=== PATIENT | male | born 1960 | race Caucasian/White ===

== ENCOUNTER 2017-02-28 18:32 | Emergency (ER) | payer BC, OTHER ==
[~2017-02-28] VITALS: Ht 172.7 cm; Wt 81.0 kg
[~2017-02-28 18:32] MED LIST: CEPH500C3 PO; HYDR-3533 PO; TAB-TAB PO
[2017-02-28 18:35] VITALS: BP 136/97; PULSE 87; RESP 16; TEMP 99.9; O2SAT 99
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
[2017-02-28] MEDS ORDERED: SODIUM CHLORIDE 0.9% FLUSH 10 ML FLUSH IVF PRN (19:15)
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
[2017-02-28 20:02] LABS: AUTOMATED NEUTROPHIL # 7.2 TH/MM3 (1.8-7.7); BASOPHIL # 0.1 TH/MM3 (0-0.2); BASOPHIL % 1.2 % (0.0-2.0); EOSINOPHIL # 0.1 TH/MM3 (0-0.4); EOSINOPHIL % 0.6 % (0.0-4.0); HEMATOCRIT 38.9 % (39.0-51.0); HEMO FLAGS DIFF FINAL; LYMPH % 6.4 % (9.0-44.0); LYMPHOCYTE # 0.6 TH/MM3 (1.0-4.8); MEAN CELL VOLUME 93.1 FL (80.0-100.0); MEAN CORPUSCULAR HEMOGLOBIN 32.1 PG (27.0-34.0); MEAN CORPUSCULAR HGB CONC 34.5 % (32.0-36.0); MONO % 7.7 % (0.0-8.0); NEUT % 84.1 % (16.0-70.0); PLATELET COUNT 187 TH/MM3 (150-450); RED BLOOD COUNT 4.17 MIL/MM3 (4.50-5.90); RED CELL DISTRIBUTION WIDTH 13.1 % (11.6-17.2); WHITE BLOOD COUNT 8.7 TH/MM3 (4.0-11.0)
[2017-02-28 20:15] LABS: APTT (PATIENT) 22.3 SEC (24.3-30.1); PROTHROMBIN TIME - PATIENT 11.4 SEC (9.8-11.6)
[2017-02-28] MEDS ORDERED: GELATIN 12 MM/7 MM FOAM TOPICAL ONE (20:45)
[2017-02-28 21:00] LABS: POTASSIUM 3.4 MEQ/L (3.5-5.1)
[2017-02-28] MEDS ORDERED: KETOROLAC TROMETHAMINE 30 MG/ML (IVP) VIAL IV PUSH ONE (21:00)
[2017-02-28 21:03] LABS: BICARBONATE 21.3 MEQ/L (21.0-32.0)
[2017-02-28] MEDS ORDERED: SODIUM CHLOR 0.9% 1000 ML INJ 1,000 ML IV ONE (21:30)
[2017-02-28] MEDS ORDERED: IOHEXOL 350 MG/ML 10 ML VIAL (for RAD DIAG) IV ONE (21:42)
[2017-02-28] MEDS ORDERED: CLINDAMYCIN 150 MG CAP PO ONE (22:00)
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
[2017-02-28] MEDS ORDERED: CLIN1CAP5 PO (22:30)
[2017-02-28] MEDS ORDERED: PERC5TAB12 PO (22:30)
[2017-02-28 23:19] VITALS: BP 147/72
== END 2017-02-28 23:25 | disposition home or self-care (01) ==
LOC: PHED 18:32
DX: S89.92XA Unspecified injury of left lower leg, initial encounter (principal); S40.812A Abrasion of left upper arm, initial encounter; S40.811A Abrasion of right upper arm, initial encounter; S80.812A Abrasion, left lower leg, initial encounter; S80.811A Abrasion, right lower leg, initial encounter; L40.9 Psoriasis, unspecified; R07.81 Pleurodynia; V28.0XXA Motorcycle driver injured in noncollision transport accident in nontraffic accident, initial encounter; Y93.I9 Activity, other involving external motion; Y92.410 Unspecified street and highway as the place of occurrence of the external cause; S01.81XA Laceration without foreign body of other part of head, initial encounter
CPT/HCPCS: 12001; 70450; 71010; 71260; 72125; 73564; 73590; 74177; 80048; 85025; 85610; 85730; 86850; 86900; 86901; 96361; 96374; 99284; J1885; J7030; Q9967

== ENCOUNTER 2017-11-14 08:06 | Emergency (ER) | payer BC ==
[~2017-11-14] VITALS: Ht 172.7 cm; Wt 88.0 kg
[~2017-11-14 08:06] MED LIST changes: -CEPH500C3 PO; +CLIN150C14 PO; -HYDR-3533 PO; +PERC5TAB12 PO; -TAB-TAB PO
[2017-11-14 08:11] VITALS: BP 158/105; PULSE 94; RESP 16; TEMP 99.3; O2SAT 95
[2017-11-14] MEDS ORDERED: CIAL5TAB PO (08:23)
[2017-11-14] MEDS ORDERED: SODIUM CHLOR 0.9% 1000 ML INJ 1,000 ML IV SCH (08:32)
[2017-11-14] MEDS ORDERED: SODIUM CHLORIDE 0.9% FLUSH 10 ML FLUSH IV FLUSH PRN (08:45)
[2017-11-14] MEDS ORDERED: ONDANSETRON HCL 4 MG/2 ML VIAL IVP ONE (08:45)
[2017-11-14] MEDS ORDERED: MORPHINE SULFATE 4 MG/ML INJ IV PUSH ONE (08:45)
[2017-11-14 08:58] LABS: BASOPHIL # 0.1 TH/MM3 (0-0.2); BASOPHIL % 0.6 % (0.0-2.0); BILIRUBIN, URINE NEG (NEG); BLOOD, URINE LARGE (NEG); EOSINOPHIL % 0.3 % (0.0-4.0); GLUCOSE,URINE NEG (NEG); HEMATOCRIT 43.9 % (39.0-51.0); HEMOGLOBIN 14.2 GM/DL (13.0-17.0); KETONE, URINE NEG (NEG); LYMPH % 8.7 % (9.0-44.0); LYMPHOCYTE # 0.8 TH/MM3 (1.0-4.8); MEAN CELL VOLUME 95.8 FL (80.0-100.0); MEAN CORPUSCULAR HEMOGLOBIN 30.9 PG (27.0-34.0); MEAN CORPUSCULAR HGB CONC 32.2 % (32.0-36.0); MEAN PLATELET VOLUME 8.4 FL (7.0-11.0); MONO % 6.5 % (0.0-8.0); MONOCYTE # 0.6 TH/MM3 (0-0.9); NEUT % 83.9 % (16.0-70.0); NITRITE,URINE NEG (NEG); PH, URINE 5.5 (5.0-8.5); PLATELET COUNT 237 TH/MM3 (150-450); RED BLOOD COUNT 4.58 MIL/MM3 (4.50-5.90); RED CELL DISTRIBUTION WIDTH 13.8 % (11.6-17.2); URINE LEUKOCYTE ESTERASE NEG (NEG); WHITE BLOOD COUNT 9.5 TH/MM3 (4.0-11.0)
[2017-11-14 09:02] LABS: URINE COLOR YELLOW (YELLW/STRAW); WBC, URINE 0-2 /hpf (0-5)
[2017-11-14 09:03] LABS: SQUAMOUS EPITHELIAL CELL URINE 0-5 /hpf (0-5)
[2017-11-14 09:06] LABS: BICARBONATE 22.2 MEQ/L (21.0-32.0)
[2017-11-14 09:09] VITALS: BP 175/100; PULSE 75; RESP 18; O2SAT 95
[2017-11-14 09:10] LABS: CREATININE 1.4 MG/DL (0.60-1.30)
--- NOTE | 2017-11-14 09:19 | RADRPT ---
EXAM DATE/TIME: 11/14/2017 08:53 [facility] COMPARISON: No previous studies available for comparison. INDICATIONS : Nausea, vomiting, left side abdominal pain since early this morning. MEDICAL HISTORY : Tinnitis. Psoriasis. SURGICAL HISTORY : Left knee. ENCOUNTER: Initial ACUITY: 1 day PAIN SCORE: 10/10 LOCATION: Left abdomen. FINDINGS: Supine and upright views of the abdomen were performed. The abdominal bowel gas pattern is normal. No air fluid levels are seen. No abnormal masses, calcifications, or organomegaly is seen. The visu alized lower lungs are clear. No evidence of free intraperitoneal gas. The osseous structures are u nremarkable. CONCLUSION: Negative for acute process. Otto Santos MD FACR on November 14, 2017 at 9:16 Board Certified Radiologist. This report was verified electronically.
--- NOTE | 2017-11-14 09:22 | PD ---
HPI . Abdominal pain Chief Complaint: GI Complaint Time Seen by Provider: 08:32 Travel History International Travel<30 days: Yes Contact w/Intl Traveler<30days: Yes Name of Country Traveled to: [place] Traveled to known affect area: No History of Present Illness HPI Patient presents with chief complaint of abdominal pain. Onset was approximately 2 AM. He describes crampy abdominal pain which he rates 10/10. Pain is located more on the left where else. It is associated with nausea and vomiting. He reports 4 episodes of emesis. He has not had any fever. He denies any urinary tract symptoms. He denies any previous abdominal operations. He reports the urge to defecate but has only been able to pass some small pellets. Patient reports that he has just returned from a cruise. He got home about 3 days ago. [facility] Past Medical History Medical History: Denies Significant Hx Hx Anticoagulant Therapy: No Diabetes: No Diminished Hearing: Yes (tinnitis) Integumentary: Yes (psoriasis) Immunizations Current: Yes Tetanus Vaccination: < 5 Years Social History Alcohol Use: Yes (SOC) Tobacco Use: No Substance Use: No Allergies-Medications (Allergen,Severity, Reaction): Coded Allergies: penicillin G (Unverified Allergy, Mild, 11/14/17) Reported Meds & Prescriptions Reported Meds & Active Scripts Active Reported Cialis (Tadalafil) 5 Mg Tab 5 Mg PO DAILY Do not exceed 1 dose/day. Review of Systems Except as stated in HPI: all other systems reviewed are Neg General / Constitutional: No: Fever, Chills Gastrointestinal: Positive: Nausea, Vomiting, Abdominal Pain, Other (bloating) , No: Diarrhea Genitourinary: No: Urgency, Frequency, Dysuria Physical Exam Narrative GENERAL: Awake and alert and in no acute distress. He does not have the appearance of someone who has 10/10 pain. SKIN: warm/dry. Normal color. HEAD: Normocephalic. Atraumatic. EYES: Pupils equal and round. No scleral icterus. No injection or drainage. ENT: No nasal bleeding or discharge. Mucous membranes pink and moist. NECK: Trachea midline. Full range of motion without pain.. CARDIOVASCULAR: Regular rate and rhythm. Heart sounds are normal. RESPIRATORY: No accessory muscle use. Clear to auscultation. Breath sounds equal bilaterally. GASTROINTESTINAL: Abdomen soft. Nontender. Bowel sounds present. Nondistended. : no CVAT MUSCULOSKELETAL: No obvious deformities. NEUROLOGICAL: Awake and alert. No obvious cranial nerve deficits. Motor grossly within normal limits. Normal speech. PSYCHIATRIC: Appropriate mood and affect; insight and judgment normal. Data Data Last Documented VS Vital Signs Date Time Temp Pulse Resp B/P (MAP) Pulse Ox O2 Delivery O2 Flow Rate FiO2 11/14/17 10:02 68 18 185/108 (133) 95 Room Air 11/14/17 08:11 99.3 Orders Orders Basic Metabolic Panel (Bmp) (11/14/17 08:32) Complete Blood Count With Diff (11/14/17 08:32) Urinalysis - C+S If Indicated (11/14/17 08:32) Abdomen, Flat & Upright (11/14/17 ) Iv Access Insert/Monitor (11/14/17 08:32) Morphine Inj (Morphine Inj) (11/14/17 08:45) Ondansetron Inj (Zofran Inj) (11/14/17 08:45) Sodium Chlor 0.9% 1000 Ml Inj (Ns 1000 M (11/14/17 08:32) Sodium Chloride 0.9% Flush (Ns Flush) (11/14/17 08:45) Ct Abd/Pel W/O Iv Contrast (11/14/17 09:23) Tamsulosin (Flomax) (11/14/17 09:30) Hydromorphone Pf Inj (Dilaudid Pf Inj) (11/14/17 09:30) Ketorolac Inj (Toradol Inj) (11/14/17 09:30) Labs Laboratory Tests Test 11/14/17 08:45 White Blood Count 9.5 TH/MM3 Red Blood Count 4.58 MIL/MM3 Hemoglobin 14.2 GM/DL Hematocrit 43.9 % Mean Corpuscular Volume 95.8 FL Mean Corpuscular Hemoglobin 30.9 PG Mean Corpuscular Hemoglobin Concent 32.2 % Red Cell Distribution Width 13.8 % Platelet Count 237 TH/MM3 Mean Platelet Volume 8.4 FL Neutrophils (%) (Auto) 83.9 % Lymphocytes (%) (Auto) 8.7 % Monocytes (%) (Auto) 6.5 % Eosinophils (%) (Auto) 0.3 % Basophils (%) (Auto) 0.6 % Neutrophils # (Auto) 8.0 TH/MM3 Lymphocytes # (Auto) 0.8 TH/MM3 Monocytes # (Auto) 0.6 TH/MM3 Eosinophils # (Auto) 0.0 TH/MM3 Basophils # (Auto) 0.1 TH/MM3 CBC Comment DIFF FINAL Differential Comment Urine Collection Type CLEAN CATCH Urine Color YELLOW Urine Turbidity CLEAR Urine pH 5.5 Urine Specific Blanch 1.018 Urine Protein TRACE mg/dL Urine Glucose (UA) NEG mg/dL Urine Ketones NEG mg/dL Urine Occult Blood LARGE Urine Nitrite NEG Urine Bilirubin NEG Urine Leukocyte Esterase NEG Urine RBC 50-99 /hpf Urine WBC 0-2 /hpf Urine Squamous Epithelial Cells 0-5 /hpf Microscopic Urinalysis Comment CULT NOT INDICATED Urine Collection Time 08:45 Blood Urea Nitrogen 13 MG/DL Creatinine 1.40 MG/DL Random Glucose 108 MG/DL Calcium Level 9.0 MG/DL Sodium Level 134 MEQ/L Potassium Level 3.5 MEQ/L Chloride Level 99 MEQ/L Carbon Dioxide Level 22.2 MEQ/L Anion Gap 13 MEQ/L Estimat Glomerular Filtration Rate 53 ML/MIN [facility] Medical Decision Making Medical Screen Exam Complete: Yes Emergency Medical Condition: Yes Differential Diagnosis Differential diagnosis of abdominal pain includes but is not limited to gastritis, pancreatitis, hepatitis, gastroenteritis, gallbladder disease, constipation, urinary retention, UTI, peptic ulcer disease, diverticulitis or appendicitis Narrative Course This patient presents with abdominal pain associated with nausea and vomiting. He looks well. His abdominal exam is benign. I suspect either a virus or constipation. I will treat him with a liter of IV fluids along with IV morphine and Zofran. Basic labs, urinalysis and abdominal x-ray are pending. CBC & BMP Diagram 11/14/17 08:45 Calcium Level 9.0 UA>>large blood/RBCs He may have a kidney stone. I will do a CT for stone. AAS>>Negative for acute process. 9:30 AM The patient was reassessed. He states this pain is returning. I have ordered Flomax, Toradol, Dilaudid. CT for kidney stone is pending. He does not have any CVA tenderness. CT: 3 small 1-2 mm stones in the left kidney with mild prominence of the left ureter. Two small 2 to 3 mm stones are seen in the left ureter at the left UV junction. There is no retroperitoneal adenopathy Mesentery is unremarkable Prominent prostatic calcifications and some of vesicles Degenerative changes lumbar spine. The patient will be discharged to home with prescriptions for Flomax, ibuprofen , Percocet and Phenergan and a referral to urology. Diagnosis Primary Impression: Abdominal pain Qualified Codes: R10.32 - Left lower quadrant pain Additional Impressions: Nausea and vomiting Qualified Codes: R11.2 - Nausea with vomiting, unspecified Kidney stone on left side Referrals: Derek Templeton MD 2 days Patient Instructions: General Instructions, Kidney Stones (DC) Med/Other Pt SpecificInfo: Prescription(s) given Scripts Tamsulosin (Flomax) 0.4 Mg Cap 0.4 MG PO HS for Manage Prostate Problems, #30 CAP 0 Refills Prov: Carlene Wetzel MD 11/14/17 Promethazine (Phenergan) 25 Mg Tablet 25 MG PO Q6H Y for NAUSEA OR VOMITING, #12 TAB 0 Refills Prov: Carlene Wetzel MD 11/14/17 Oxycodone-Acetaminophen (Percocet) 5-325 mg Tab 1 TAB PO Q4H Y for PAIN, #12 TAB 0 Refills Prov: Carlene Wetezl MD 11/14/17 Ibuprofen (Ibuprofen) 800 Mg Tab 800 MG PO Q8H Y for Pain/Inflammation, #60 TAB 0 Refills Prov: Carlene Wetzel MD 11/14/17 Disposition: 01 DISCHARGE HOME Condition: Stable Carlene Wetzel MD Nov 14, 2017 09:22
[2017-11-14] MEDS ORDERED: KETOROLAC TROMETHAMINE 30 MG/ML (IVP) VIAL IV PUSH ONE (09:30)
[2017-11-14] MEDS ORDERED: HYDROmorphone HCL PF 2 MG/ML VIAL IV PUSH ONE (09:30)
[2017-11-14] MEDS ORDERED: TAMSULOSIN HCL 0.4 MG CAP PO ONE (09:30)
[2017-11-14 10:02] VITALS: BP 185/108; PULSE 68; RESP 18; O2SAT 95
--- NOTE | 2017-11-14 10:04 | RADRPT ---
EXAM DATE/TIME: 11/14/2017 09:38 [place] COMPARISON: No previous studies available for comparison. INDICATIONS : Left flank pain. ORAL CONTRAST: No oral contrast ingested. RADIATION DOSE: 20.24 CTDIvol (mGy) MEDICAL HISTORY : None SURGICAL HISTORY : None. ENCOUNTER: Initial ACUITY: 1 day PAIN SCALE: 10/10 LOCATION: Left flank TECHNIQUE: Volumetric scanning of the abdomen and pelvis was performed. Using automated exposure control and ad justment of the mA and/or kV according to patient size, radiation dose was kept as low as reasonably achievable to obtain optimal diagnostic quality images. DICOM format image data is available electro nically for review and comparison. FINDINGS: Lung base is are clear. GE junction is prominent. Liver fatty replaced. The spleen, pancreas adrenals unremarkable Right kidney small 3 mm stone lower pole nonobstructing Left kidney: 3 small 1-2 mm stones in the left kidney with mild prominence of the left ureter. Two small 2 to 3 m m stones are seen in the left ureter at the left UV junction. There is no retroperitoneal adenopathy Mesentery is unremarkable Prominent prostatic calcifications and some of vesicles Degenerative changes lumbar spine. CONCLUSION: Bilateral small renal stones with obstruction on the left at UVJ. Moderate perinephric stranding is present. Fatty replacement the liver Otto Santos MD FACR on November 14, 2017 at 9:58 Board Certified Radiologist. This report was verified electronically.
[2017-11-14] MEDS ORDERED: IBUP1TAB7 PO (10:19)
[2017-11-14] MEDS ORDERED: TAMS5CAP PO (10:19)
[2017-11-14] MEDS ORDERED: PERC5TAB12 PO (10:19)
[2017-11-14] MEDS ORDERED: PROM25TA10 PO (10:19)
[2017-11-14 11:27] VITALS: RESP 18
[2017-11-14 11:28] VITALS: BP 155/100
== END 2017-11-14 11:32 | disposition home or self-care (01) ==
LOC: PHED 08:06
DX: N20.0 Calculus of kidney (principal); R10.32 Left lower quadrant pain; R11.2 Nausea with vomiting, unspecified
CPT/HCPCS: 74020; 74176; 80048; 81001; 85025; 96361; 96374; 96375; 99285; J1170; J1885; J2270; J2405; J7030